=== PATIENT | female | born 1985 | race Caucasian/White ===

== ENCOUNTER 2021-11-14 20:49 | Emergency (ER) | payer OTHER ==
[2021-11-14 21:32] LABS: BASOPHIL 0.8 % (0-2); EOSINOPHIL 0.8 % (0-5); HCT 36.7 % (37.0-47.0); HGB 11.8 g/dl (12.5-16.0); LYMPHOCYTE 25.5 % (15-48); MCH 29.7 pg (25.0-31.0); MCHC 32.2 g/dL (32.0-36.0); MCV 92.4 fL (78.0-100.0); MONOCYTE 21.5 % (0-12); MPV 9.8 fL (6.0-9.5); NEUTROPHIL 51.4 % (41-80); NRBC 0; PLT 196 K/uL (150-400); RBC 3.97 M/uL (4.20-5.40); RDW 12.9 % (11.5-14.0); WBC 2.5 K/uL (4.0-10.5)
[2021-11-14 21:50] LABS: ALBUMIN 3.5 g/dL (3.4-5.0); ALKALINE PHOSHATASE 86 U/L (46-116); ALT 17 U/L (14-59); AST 11 U/L (15-37); BILIRUBIN - TOTAL 0.3 mg/dL (0.2-1.0); BUN 14 mg/dL (7-18); BUN/CREAT RATIO (CALC) 15.4 RATIO; CHLORIDE 104 mmol/L (98-107); CO2 (BICARBONATE) 26 mmol/L (21-32); CREATININE 0.91 mg/dL (0.51-0.95); GLOBULIN (CALCULATION) 3.8 g/dL; GLUCOSE 53 mg/dL (74-106); LIPASE 104 U/L (73-393); MAGNESIUM 2.1 mg/dL (1.8-2.4); POTASSIUM 3.3 mmol/L (3.5-5.1); TOTAL PROTEIN 7.3 g/dL (6.4-8.2)
[2021-11-14] MEDS ORDERED: OMEPRAZOLE40 MG PO (22:48)
[2021-11-14] MEDS ORDERED: NORCO 5-325 TA1 EACH PO (22:54)
== END 2021-11-14 23:34 | disposition home or self-care (01) ==
LOC: FER 20:49
PROVIDERS: Internal Medicine
DX: R10.11 Right upper quadrant pain (principal); R07.89 Other chest pain
CPT/HCPCS: 36415; 71045; 80053; 83690; 83735; 84145; 84484; 85025; 93005; G0480; J7120